=== PATIENT | female | born 1970 | race American Indian/Alaskan Native ===

== ENCOUNTER 2020-10-08 13:18 | Emergency (ER) | payer OTHER ==
[2020-10-08] MEDS ORDERED: SODIUM CHLORIDE 0.9% 500 ML 500 ML IV ONE (14:04)
--- NOTE | 2020-10-08 14:35 | XRay Report ---
CHEST 1 VIEW 2:22 PM INDICATION / CLINICAL INFORMATION: Sepsis. COMPARISON: None available. FINDINGS: SUPPORT DEVICES: None. HEART / MEDIASTINUM: The heart size and pulmonary vasculature are normal. LUNGS / PLEURA: No significant pulmonary or pleural abnormality. No pneumothorax. ADDITIONAL FINDINGS: No significant additional findings. IMPRESSION: No acute findings. There is no evidence of pneumonia. Signer Name: Rupesh Tucker MD Signed: 10/08/2020 2:31 PM Workstation Name: [id number]
[2020-10-08] MEDS ORDERED: SODIUM CHLORIDE 0.9% 1000 ML 1,000 ML IV ONE (14:40)
[2020-10-08] MEDS ORDERED: INSULIN REGULAR, HUMAN 100 UNIT/ML 3ML VIAL IV ONE (14:40)
[2020-10-08 14:44] LABS: Basophils % (Auto) 0.2 % (0.0-1.8); Hematocrit 38.3 % (30.3-42.9); Hemoglobin 12.8 gm/dl (10.1-14.3); Lymphocytes # (Auto) 0.9 K/mm3 (1.2-5.4); Lymphocytes % (Auto) 21.6 % (13.4-35.0); Mean Corpuscular HGB Conc 33 % (30-34); Mean Corpuscular Volume 83 fl (79-97); Monocytes # (Auto) 0.3 K/mm3 (0.0-0.8); Platelet Count 167 K/mm3 (140-440); Red Cell Distribution Width 13.5 % (13.2-15.2)
--- NOTE | 2020-10-08 14:48 | Emergency Department Report ---
ED General Adult HPI - General Chief complaint: Hyperglycemia Stated complaint: HIGH BLOOD SUGAR/KETONES Time Seen by Provider: 10/08/20 14:30 Source: patient Mode of arrival: Ambulatory Limitations: No Limitations - History of Present Illness Initial comments: 49-year-old female with a past medical history of diabetes presents to the hospital with hyperglycemia and urinary symptoms. Patient states she was taking Trulicity up until April. She discontinued the medication due to side effects. She never followed up with her primary care doctor as scheduled and instead was using herbal remedies but not checking her glucose during this. The last 1 to 2 weeks patient has had increased urination and developed left flank pain x 3 days ago. Patient does not have a fever, nausea, vomiting, diarrhea, or dysuria. Patient went to her PMD office today due to urinary stent and was found to have hyperglycemia with urine ketosis and therefore was sent to ER for evaluation. She was just prescribed Basaglar 10 units nightly by her PMD but has not had any insulin since April. Patient complains of an occasional cough of yellow sputum without shortness of breath, or loss of sense of taste or smell. Patient's flank pain has improved since taken Tylenol prior to arrival. - Related Data Home Medications Medication Instructions Recorded Confirmed Last Taken Acetaminophen [Tylenol] 500 mg PO PRN PRN 05/26/14 06/08/14 06/06/14 09:00 HYDROcodone/APAP 5-325 [New Site 1 tab PO PRN PRN 05/26/14 06/08/14 06/06/14 09:00 5-325 mg TAB] Previous Rx's Medication Instructions Recorded Last Taken Type Ferrous Sulfate [Feosol 325 MG tab] 325 mg PO BID #90 tablet 05/13/14 06/04/14 09:00 Rx Multivitamin [Multi Vitamin Daily] 1 each PO DAILY #90 tablet 05/13/14 05/25/14 09:00 Rx Ciprofloxacin HCl [Ciprofloxacin 500 mg PO Q12H #20 tab 06/07/14 Unknown Rx TAB] Docusate Sodium [Colace CAP] 100 mg PO BID #30 capsule 06/09/14 Unknown Rx Ferrous Sulfate [Feosol 325 MG tab] 325 mg PO BID #60 tablet 06/09/14 Unknown Rx Multivitamin Tab [Multiple Vitamin 1 each PO QDAY #60 tablet 06/09/14 Unknown Rx TAB (Theragran)] oxyCODONE /ACETAMINOPHEN [Percocet 1 tab PO Q6H PRN #30 tablet 06/09/14 Unknown Rx 5/325 mg] Allergies Allergy/AdvReac Type Severity Reaction Status Date / Time latex AdvReac bladder Verified 05/26/14 12:55 infection valproate sodium AdvReac Headache Verified 05/26/14 12:56 [From Depacon] ED Review of Systems ROS: Stated complaint: HIGH BLOOD SUGAR/KETONES Other details as noted in HPI Comment: All other systems reviewed and negative ED Past Medical Hx - Past Medical History Previous Medical History?: Yes Hx Hypertension: (EKG, Stress test, and blood work done at [facility] - results 06/04/14) Hx Congestive Heart Failure: No Hx Diabetes: Yes (gestational Diabetes) Hx Deep Vein Thrombosis: Yes (1999 DURING ) Hx GERD: Yes Hx Liver Disease: No Hx Renal Disease: No Hx Sickle Cell Disease: No Hx Seizures: No Hx Asthma: No Hx COPD: No Hx HIV: No Additional medical history: DUB recent transfusions - Surgical History Past Surgical History?: Yes Additional Surgical History: hernia repair. D & C. x 2 , Hysterectomy - Social History Smoking Status: Never Smoker Substance Use Type: None - Medications Home Medications: Home Medications Medication Instructions Recorded Confirmed Last Taken Type Ferrous Sulfate [Feosol 325 MG tab] 325 mg PO BID #90 tablet 05/13/14 06/08/14 06/04/14 09:00 Rx Multivitamin [Multi Vitamin Daily] 1 each PO DAILY #90 tablet 05/13/14 06/08/14 05/25/14 09:00 Rx Acetaminophen [Tylenol] 500 mg PO PRN PRN 05/26/14 06/08/14 06/06/14 09:00 History HYDROcodone/APAP 5-325 [New Site 1 tab PO PRN PRN 05/26/14 06/08/14 06/06/14 09:00 History 5-325 mg TAB] Ciprofloxacin HCl [Ciprofloxacin 500 mg PO Q12H #20 tab 06/07/14 06/09/14 Unknown Rx TAB] Docusate Sodium [Colace CAP] 100 mg PO BID #30 capsule 06/09/14 Unknown Rx Ferrous Sulfate [Feosol 325 MG tab] 325 mg PO BID #60 tablet 06/09/14 Unknown Rx Multivitamin Tab [Multiple Vitamin 1 each PO QDAY #60 tablet 06/09/14 Unknown Rx TAB (Theragran)] oxyCODONE /ACETAMINOPHEN [Percocet 1 tab PO Q6H PRN #30 tablet 06/09/14 Unknown Rx 5/325 mg] ED Physical Exam - General Limitations: No Limitations ED Course Vital Signs 10/08/20 10/08/20 10/08/20 13:45 13:58 15:04 Temperature 100.2 F H 100.2 F H Pulse Rate 106 H 105 H 102 H Respiratory 20 20 18 Rate Blood Pressure 146/86 146/86 Blood Pressure [Left] O2 Sat by Pulse 95 95 Oximetry 10/08/20 10/08/20 10/08/20 15:16 15:30 15:40 Temperature 99.9 F H Pulse Rate 90 95 H 91 H Respiratory 24 15 21 Rate Blood Pressure Blood Pressure 138/74 [Left] O2 Sat by Pulse 98 98 98 Oximetry 10/08/20 10/08/20 10/08/20 15:44 15:46 16:00 Temperature Pulse Rate 94 H 93 H Respiratory 20 24 22 Rate Blood Pressure 138/74 137/85 Blood Pressure [Left] O2 Sat by Pulse 98 99 98 Oximetry 10/08/20 10/08/20 10/08/20 16:01 16:16 16:30 Temperature Pulse Rate 93 H 112 H 90 Respiratory 26 H 22 Rate Blood Pressure 166/83 139/82 Blood Pressure [Left] O2 Sat by Pulse 98 97 Oximetry 10/08/20 10/08/20 10/08/20 16:46 17:00 17:16 Temperature Pulse Rate 91 H 96 H 101 H Respiratory 23 25 H 22 Rate Blood Pressure 162/85 161/82 161/85 Blood Pressure [Left] O2 Sat by Pulse 97 99 97 Oximetry 10/08/20 17:30 Temperature Pulse Rate 94 H Respiratory 24 Rate Blood Pressure 154/76 Blood Pressure [Left] O2 Sat by Pulse 99 Oximetry ED Medical Decision Making - Lab Data Result diagrams: 10/08/20 14:26 10/08/20 14:26 Lab Results 10/08/20 10/08/20 10/08/20 Range/Units 13:50 14:16 14:26 WBC 4.4 L (4.5-11.0) K/mm3 RBC 4.60 (3.65-5.03) M/mm3 Hgb 12.8 (10.1-14.3) gm/dl Hct 38.3 (30.3-42.9) % MCV 83 (79-97) fl MCH 28 (28-32) pg MCHC 33 (30-34) % RDW 13.5 (13.2-15.2) % Plt Count 167 (140-440) K/mm3 Lymph % (Auto) 21.6 (13.4-35.0) % Foster % (Auto) 7.0 (0.0-7.3) % Eos % (Auto) 0.0 (0.0-4.3) % Baso % (Auto) 0.2 (0.0-1.8) % Lymph # (Auto) 0.9 L (1.2-5.4) K/mm3 Foster # (Auto) 0.3 (0.0-0.8) K/mm3 Eos # (Auto) 0.0 (0.0-0.4) K/mm3 Baso # (Auto) 0.0 (0.0-0.1) K/mm3 Seg Neutrophils % 71.2 H (40.0-70.0) % Seg Neutrophils # 3.1 (1.8-7.7) K/mm3 PT (12.2-14.9) Sec. INR (0.87-1.13) VBG pH (7.320-7.420) Sodium (137-145) mmol/L Potassium (3.6-5.0) mmol/L Chloride (98-107) mmol/L Carbon Dioxide (22-30) mmol/L Anion Gap mmol/L BUN (7-17) mg/dL Creatinine (0.6-1.2) mg/dL Estimated GFR ml/min BUN/Creatinine Ratio % Glucose (65-100) mg/dL POC Glucose 429 H (70-105) mg/dL Ketones Quantitative (Negative) Lactic Acid (0.7-2.0) mmol/L Calcium (8.4-10.2) mg/dL Magnesium (1.7-2.3) mg/dL Total Bilirubin (0.1-1.2) mg/dL Direct Bilirubin (0-0.2) mg/dL Indirect Bilirubin mg/dL AST (5-40) units/L ALT (7-56) units/L Alkaline Phosphatase (35-129) units/L Total Protein (6.3-8.2) g/dL Albumin (3.9-5) g/dL Albumin/Globulin Ratio % Urine Color Straw (Yellow) Urine Turbidity Clear (Clear) Urine pH 5.0 (5.0-7.0) Ur Specific [place] 1.032 H (1.003-1.030) Urine Protein <15 mg/dl (Negative) mg/dL Urine Glucose (UA) >=500 (Negative) mg/dL Urine Ketones 80 (Negative) mg/dL Urine Blood Neg (Negative) Urine Nitrite Neg (Negative) Urine Bilirubin Neg (Negative) Urine Urobilinogen < 2.0 (<2.0) mg/dL Ur Leukocyte Esterase Tr (Negative) Urine WBC (Auto) 2.0 (0.0-6.0) /HPF Urine RBC (Auto) 2.0 (0.0-6.0) /HPF U Epithel Cells (Auto) 2.0 (0-13.0) /HPF Urine Bacteria (Auto) 1+ (Negative) /HPF Urine Mucus Few /HPF 10/08/20 10/08/20 10/08/20 Range/Units 14:26 14:26 14:26 WBC (4.5-11.0) K/mm3 RBC (3.65-5.03) M/mm3 Hgb (10.1-14.3) gm/dl Hct (30.3-42.9) % MCV (79-97) fl MCH (28-32) pg MCHC (30-34) % RDW (13.2-15.2) % Plt Count (140-440) K/mm3 Lymph % (Auto) (13.4-35.0) % Foster % (Auto) (0.0-7.3) % Eos % (Auto) (0.0-4.3) % Baso % (Auto) (0.0-1.8) % Lymph # (Auto) (1.2-5.4) K/mm3 Foster # (Auto) (0.0-0.8) K/mm3 Eos # (Auto) (0.0-0.4) K/mm3 Baso # (Auto) (0.0-0.1) K/mm3 Seg Neutrophils % (40.0-70.0) % Seg Neutrophils # (1.8-7.7) K/mm3 PT 12.2 (12.2-14.9) Sec. INR 0.91 (0.87-1.13) VBG pH (7.320-7.420) Sodium 132 L (137-145) mmol/L Potassium 3.9 (3.6-5.0) mmol/L Chloride 96.4 L (98-107) mmol/L Carbon Dioxide 23 (22-30) mmol/L Anion Gap 17 mmol/L BUN 9 (7-17) mg/dL Creatinine 0.7 (0.6-1.2) mg/dL Estimated GFR > 60 ml/min BUN/Creatinine Ratio 13 % Glucose 400 H (65-100) mg/dL POC Glucose (70-105) mg/dL Ketones Quantitative (Negative) Lactic Acid 1.40 (0.7-2.0) mmol/L Calcium 9.0 (8.4-10.2) mg/dL Magnesium 1.80 (1.7-2.3) mg/dL Total Bilirubin 0.40 (0.1-1.2) mg/dL Direct Bilirubin < 0.2 (0-0.2) mg/dL Indirect Bilirubin 0.2 mg/dL AST 20 (5-40) units/L ALT 27 (7-56) units/L Alkaline Phosphatase 92 (35-129) units/L Total Protein 7.5 (6.3-8.2) g/dL Albumin 4.2 (3.9-5) g/dL Albumin/Globulin Ratio 1.3 % Urine Color (Yellow) Urine Turbidity (Clear) Urine pH (5.0-7.0) Ur Specific [place] (1.003-1.030) Urine Protein (Negative) mg/dL Urine Glucose (UA) (Negative) mg/dL Urine Ketones (Negative) mg/dL Urine Blood (Negative) Urine Nitrite (Negative) Urine Bilirubin (Negative) Urine Urobilinogen (<2.0) mg/dL Ur Leukocyte Esterase (Negative) Urine WBC (Auto) (0.0-6.0) /HPF Urine RBC (Auto) (0.0-6.0) /HPF U Epithel Cells (Auto) (0-13.0) /HPF Urine Bacteria (Auto) (Negative) /HPF Urine Mucus /HPF 10/08/20 10/08/20 10/08/20 Range/Units 14:26 14:26 14:54 WBC (4.5-11.0) K/mm3 RBC (3.65-5.03) M/mm3 Hgb (10.1-14.3) gm/dl Hct (30.3-42.9) % MCV (79-97) fl MCH (28-32) pg MCHC (30-34) % RDW (13.2-15.2) % Plt Count (140-440) K/mm3 Lymph % (Auto) (13.4-35.0) % Foster % (Auto) (0.0-7.3) % Eos % (Auto) (0.0-4.3) % Baso % (Auto) (0.0-1.8) % Lymph # (Auto) (1.2-5.4) K/mm3 Foster # (Auto) (0.0-0.8) K/mm3 Eos # (Auto) (0.0-0.4) K/mm3 Baso # (Auto) (0.0-0.1) K/mm3 Seg Neutrophils % (40.0-70.0) % Seg Neutrophils # (1.8-7.7) K/mm3 PT (12.2-14.9) Sec. INR (0.87-1.13) VBG pH 7.370 (7.320-7.420) Sodium (137-145) mmol/L Potassium (3.6-5.0) mmol/L Chloride (98-107) mmol/L Carbon Dioxide (22-30) mmol/L Anion Gap mmol/L BUN (7-17) mg/dL Creatinine (0.6-1.2) mg/dL Estimated GFR ml/min BUN/Creatinine Ratio % Glucose (65-100) mg/dL POC Glucose 374 H (70-105) mg/dL Ketones Quantitative Moderate (Negative) Lactic Acid (0.7-2.0) mmol/L Calcium (8.4-10.2) mg/dL Magnesium (1.7-2.3) mg/dL Total Bilirubin (0.1-1.2) mg/dL Direct Bilirubin (0-0.2) mg/dL Indirect Bilirubin mg/dL AST (5-40) units/L ALT (7-56) units/L Alkaline Phosphatase (35-129) units/L Total Protein (6.3-8.2) g/dL Albumin (3.9-5) g/dL Albumin/Globulin Ratio % Urine Color (Yellow) Urine Turbidity (Clear) Urine pH (5.0-7.0) Ur Specific [place] (1.003-1.030) Urine Protein (Negative) mg/dL Urine Glucose (UA) (Negative) mg/dL Urine Ketones (Negative) mg/dL Urine Blood (Negative) Urine Nitrite (Negative) Urine Bilirubin (Negative) Urine Urobilinogen (<2.0) mg/dL Ur Leukocyte Esterase (Negative) Urine WBC (Auto) (0.0-6.0) /HPF Urine RBC (Auto) (0.0-6.0) /HPF U Epithel Cells (Auto) (0-13.0) /HPF Urine Bacteria (Auto) (Negative) /HPF Urine Mucus /HPF 10/08/20 10/08/20 Range/Units 16:58 17:03 WBC (4.5-11.0) K/mm3 RBC (3.65-5.03) M/mm3 Hgb (10.1-14.3) gm/dl Hct (30.3-42.9) % MCV (79-97) fl MCH (28-32) pg MCHC (30-34) % RDW (13.2-15.2) % Plt Count (140-440) K/mm3 Lymph % (Auto) (13.4-35.0) % Foster % (Auto) (0.0-7.3) % Eos % (Auto) (0.0-4.3) % Baso % (Auto) (0.0-1.8) % Lymph # (Auto) (1.2-5.4) K/mm3 Foster # (Auto) (0.0-0.8) K/mm3 Eos # (Auto) (0.0-0.4) K/mm3 Baso # (Auto) (0.0-0.1) K/mm3 Seg Neutrophils % (40.0-70.0) % Seg Neutrophils # (1.8-7.7) K/mm3 PT (12.2-14.9) Sec. INR (0.87-1.13) VBG pH (7.320-7.420) Sodium (137-145) mmol/L Potassium (3.6-5.0) mmol/L Chloride (98-107) mmol/L Carbon Dioxide (22-30) mmol/L Anion Gap mmol/L BUN (7-17) mg/dL Creatinine (0.6-1.2) mg/dL Estimated GFR ml/min BUN/Creatinine Ratio % Glucose (65-100) mg/dL POC Glucose 267 H (70-105) mg/dL Ketones Quantitative (Negative) Lactic Acid 0.70 (0.7-2.0) mmol/L Calcium (8.4-10.2) mg/dL Magnesium (1.7-2.3) mg/dL Total Bilirubin (0.1-1.2) mg/dL Direct Bilirubin (0-0.2) mg/dL Indirect Bilirubin mg/dL AST (5-40) units/L ALT (7-56) units/L Alkaline Phosphatase (35-129) units/L Total Protein (6.3-8.2) g/dL Albumin (3.9-5) g/dL Albumin/Globulin Ratio % Urine Color (Yellow) Urine Turbidity (Clear) Urine pH (5.0-7.0) Ur Specific [place] (1.003-1.030) Urine Protein (Negative) mg/dL Urine Glucose (UA) (Negative) mg/dL Urine Ketones (Negative) mg/dL Urine Blood (Negative) Urine Nitrite (Negative) Urine Bilirubin (Negative) Urine Urobilinogen (<2.0) mg/dL Ur Leukocyte Esterase (Negative) Urine WBC (Auto) (0.0-6.0) /HPF Urine RBC (Auto) (0.0-6.0) /HPF U Epithel Cells (Auto) (0-13.0) /HPF Urine Bacteria (Auto) (Negative) /HPF Urine Mucus /HPF - EKG Data -: EKG Interpreted by [facility] EKG shows normal: sinus rhythm, ST-T waves (no stemi) Rate: normal (93) - Radiology Data Radiology results: report reviewed CHEST 1 VIEW 2:22 PM INDICATION / CLINICAL INFORMATION: Sepsis. COMPARISON: None available. FINDINGS: SUPPORT DEVICES: None. HEART / MEDIASTINUM: The heart size and pulmonary vasculature are normal. LUNGS / PLEURA: No significant pulmonary or pleural abnormality. No pneumothorax. ADDITIONAL FINDINGS: No significant additional findings. IMPRESSION: No acute findings. There is no evidence of pneumonia. - Medical Decision Making Patient does have a low-grade fever. Chest x-ray negative for infiltrate. UA negative for infection. Patient has hyperglycemia likely chronic secondary to noncompliance with diabetes medications since April. Although there are ketones in the urine there were no other findings of DKA and patient has a normal pH, anion gap, and no acidosis. Patient does have mild dehydration have dehydration suggestive of elevated specific gravity on UA. Overall patient is nontoxic-appearing. Glucose improved after insulin IV fluids down to the 200s. Patient will be discharged to take her insulin as prescribed by her primary care doctor (which includes a dose tonight) Critical Care Time: No Critical care attestation.: If time is entered above; I have spent that time in minutes in the direct care of this critically ill patient, excluding procedure time. ED Disposition Clinical Impression: Hyperglycemia due to diabetes mellitus, URI (upper respiratory infection) Disposition: OP ADMIT IP TO THIS HOSP Is pt being admited?: Yes Condition: Stable Instructions: Diabetes Mellitus Type 2 in Adults (ED), Upper Respiratory Infection, Adult, Hyperglycemia Additional Instructions: Take the medication as prescribed. Follow-up with your doctor. Return if symp toms worsen as indicated by your discharge instructions. Referrals: HARSH KRISHNA MD [Primary Care Provider] - 2-3 Days Time of Disposition: 18:11
[2020-10-08 14:49] LABS: Bacteria,Urine 1+ /HPF (Negative); Bilirubin,Urine NEG (Negative); Blood,Urine NEG (Negative); Color,Urine Straw (Yellow); Mucus,Urine FEW /HPF; Protein,Urine <15 mg/dL mg/dL (Negative); Urobilinogen,Urine < 2.0 mg/dL (<2.0)
[2020-10-08 14:52] LABS: INR 0.91 (0.87-1.13)
[2020-10-08] MEDS ORDERED: INSULIN REGULAR, HUMAN 100 UNITS/1 ML ONE (15:00)
[2020-10-08 15:06] LABS: Alanine Aminotransferase 27 units/L (7-56); Albumin 4.2 g/dL (3.9-5); BUN/Creatinine Ratio 13; Bilirubin,Direct < 0.2 mg/dL (0-0.2); Blood Urea Nitrogen 9 mg/dL (7-17); Hemolysis Index 2
[2020-10-08 18:39] VITALS: BP 157/81
== END 2020-10-08 18:39 | disposition admitted as inpatient to this hospital (09) ==
LOC: ED 13:18
DX: E11.65 Type 2 diabetes mellitus with hyperglycemia (principal); J06.9 Acute upper respiratory infection, unspecified; I10 Essential (primary) hypertension; K21.9 Gastro-esophageal reflux disease without esophagitis; Z90.710 Acquired absence of both cervix and uterus; Z98.890 Other specified postprocedural states; Z79.2 Long term (current) use of antibiotics; Z79.899 Other long term (current) drug therapy; Z91.040 Latex allergy status; Z88.8 Allergy status to other drugs, medicaments and biological substances
CPT/HCPCS: 36415; 71045; 80048; 80076; 81001; 82010; 82140; 82805; 82962; 83735; 85025; 85610; 87040; 87086; 93005; 96361; 96374; 99284; J7030; J7040; J1815